=== PATIENT | female | born 2005 | race African-American/Black ===

== ENCOUNTER 2023-02-15 01:18 | Emergency (ER) | payer MEDICAID ==
[~2023-02-15] VITALS: Ht 165.1 cm; Wt 57.0 kg
[2023-02-15 01:50] VITALS: O2SAT 99
[2023-02-15 03:03] VITALS: TEMP 98.4
[2023-02-15] MEDS ORDERED: IBUPROFEN 600MG TABLET PO ONE (03:45)
[2023-02-15 03:54] VITALS: BP 97/60; PULSE 90; RESP 18
== END 2023-02-15 04:45 | disposition home or self-care (01) ==
LOC: ER 01:18
DX: S06.0X0A Concussion without loss of consciousness, initial encounter (principal); Z98.890 Other specified postprocedural states; W01.0XXA Fall on same level from slipping, tripping and stumbling without subsequent striking against object, initial encounter; Y93.89 Activity, other specified; Y92.89 Other specified places as the place of occurrence of the external cause; Y99.8 Other external cause status
CPT/HCPCS: 81025; 99284